=== PATIENT | male | born 1990 | race Caucasian/White ===

== ENCOUNTER 2017-05-11 09:39 | Inpatient (IN) | payer OTHER | END 2017-06-08 07:16 | disposition home or self-care (01) | DRG 895 | DX: F10.20 Alcohol dependence, uncomplicated (principal); F19.24 Other psychoactive substance dependence with psychoactive substance-induced mood disorder; F11.20 Opioid dependence, uncomplicated; F12.20 Cannabis dependence, uncomplicated; F17.210 Nicotine dependence, cigarettes, uncomplicated; F32.9 Major depressive disorder, single episode, unspecified; Z65.2 Problems related to release from prison; Z81.1 Family history of alcohol abuse and dependence ==